=== PATIENT | female | born 1995 | race African-American/Black ===

== ENCOUNTER 2016-10-04 15:03 | Emergency (ER) | payer SELFPAY ==
[~2016-10-04] VITALS: Ht 149.9 cm; Wt 73.9 kg
[~2016-10-04 15:03] MED LIST: CEPH-264 PO; CEPH500C PO; FAMO20TA5 PO; METR500T4 PO
[2016-10-04 15:30] VITALS: BP 127/76
[2016-10-04 15:53] LABS: BILIRUBIN,URINE SMALL (NEG); GLUCOSE,URINE NEGATIVE (NEG); NITRITE,URINE NEGATIVE (NEG); PROTEIN,URINE 30 mg/dL (NEG-TRACE)
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
[2016-10-04] MEDS ORDERED: ACETAMINOPHEN 325 MG TABLET. PO ONE (16:00)
[2016-10-04 16:01] LABS: RBC,URINE OCC /HPF (0-2); WBC,URINE OCC /HPF (0-4)
[2016-10-04 16:02] LABS: BACTERIA,URINE FEW /HPF (0-FEW); SQUAMOUS EPITHELIAL CELL,UR MOD /LPF
[2016-10-04 16:05] LABS: NEG OBC UR NEG; POS OBC UR POS
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
== END 2016-10-04 16:45 | disposition home or self-care (01) ==
LOC: ER 15:03
DX: M25.522 Pain in left elbow (principal); M25.562 Pain in left knee; F12.10 Cannabis abuse, uncomplicated; V43.52XA Car driver injured in collision with other type car in traffic accident, initial encounter; Y92.415 Exit ramp or entrance ramp of street or highway as the place of occurrence of the external cause; Y93.89 Activity, other specified; Y99.8 Other external cause status
CPT/HCPCS: 70486; 73080; 73090; 73564; 81001; 81025; 87086; 99285-25

== ENCOUNTER 2016-12-07 21:24 | Emergency (ER) | payer SELFPAY ==
[~2016-12-07] VITALS: Ht 149.9 cm; Wt 73.5 kg
[2016-12-07 21:39] VITALS: BP 120/74
[2016-12-07 22:06] LABS: BILIRUBIN,URINE NEGATIVE (NEG); GLUCOSE,URINE NEGATIVE (NEG); NITRITE,URINE NEGATIVE (NEG); PROTEIN,URINE NEGATIVE (NEG-TRACE)
[2016-12-07 22:16] LABS: BACTERIA,URINE MODERATE /HPF (0-FEW); RBC,URINE 0 /HPF (0-2); SQUAMOUS EPITHELIAL CELL,UR MANY /LPF
--- NOTE | 2016-12-07 22:24 | PHYS DOC ---
Past Medical History Past Medical History: No Pertinent History Past Surgical History: No Surgical History Alcohol Use: None Drug Use: Marijuana Adult General Chief Complaint Chief Complaint: ABDOMINAL PAIN HPI HPI Patient is a 21 year old female who presents with lower abdominal pain and intermittent nausea with concern of . Symptoms have been intermittent over the past 2 weeks. States she is 2 days late for her menstrual cycle, but she has some vaginal spotting over this time. Only one episode of emesis today, nonbloody nonbilious. She denies fever or chills, diarrhea, dysuria, hematuria , constipation. Review of Systems Review of Systems Constitutional: Denies fever or chills [] Eyes: Denies change in visual acuity, redness, or eye pain [] HENT: Denies nasal congestion or sore throat [] Respiratory: Denies cough or shortness of breath [] Cardiovascular: No additional information not addressed in HPI [] GI: Denies bloody stools or diarrhea [] : Denies dysuria or hematuria [] Musculoskeletal: Denies back pain or joint pain [] Integument: Denies rash or skin lesions [] Neurologic: Denies headache, focal weakness or sensory changes [] Endocrine: Denies polyuria or polydipsia [] Allergies Allergies Allergies Coded Allergies Type Severity Reaction Last Updated Verified No Known Drug Allergies 03/17/16 No Physical Exam Physical Exam Constitutional: Well developed, well nourished, no acute distress, non-toxic appearance. [] HENT: Normocephalic, atraumatic, bilateral external ears normal, oropharynx moist, nose normal. [] Eyes: PERRLA, EOMI. [] Neck: Normal range of motion, supple. [] Cardiovascular:Heart rate regular rhythm [] Lungs & Thorax: Bilateral breath sounds clear to auscultation [] Abdomen: Bowel sounds normal, soft, no tenderness. [] Skin: Warm, dry, no erythema, no rash. [] Back: No tenderness, no CVA tenderness. [] Extremities: No tenderness, ROM intact, no edema. [] Neurologic: Alert and oriented X 3, normal motor function, normal sensory function, no focal deficits noted. [] Psychologic: Affect normal, judgement normal, mood normal. [] Current Patient Data Vital Signs Vital Signs Date Time Temp Pulse Resp B/P Pulse Ox O2 Delivery O2 Flow Rate FiO2 12/07/16 21:39 98.0 57 18 120/74 99 Room Air 98.0 Lab Values Laboratory Tests Test 12/07/16 21:40 Urine Color Yellow Urine Clarity Clear Urine pH 6.0 Urine Specific [place] >=1.030 Urine Protein Negativemg/dL (NEG-TRACE) Urine Glucose (UA) Negativemg/dL (NEG) Urine Ketones (Stick) Negativemg/dL (NEG) Urine Blood Negative (NEG) Urine Nitrite Negative (NEG) Urine Bilirubin Negative (NEG) Urine Urobilinogen Dipstick 1.0mg/dL (0.2 mg/dL) Urine Leukocyte Esterase Trace (NEG) Urine RBC 0/HPF (0-2) Urine WBC 1-4/HPF (0-4) Urine Squamous Epithelial Cells Many/LPF Urine Bacteria Moderate/HPF (0-FEW) Urine Mucus Mod/LPF Course & Med Decision Making Course & Med Decision Making Pertinent Labs and Imaging studies reviewed. (See chart for details) Told test is negative by nursing. UA is otherwise unremarkable. Discussed supportive care for symptoms. Return precautions given. She understands and agrees with plan. Dragon Disclaimer Dragon Disclaimer This electronic medical record was generated, in whole or in part, using a voice recognition dictation system. Departure Departure Impression: Primary Impression: Lower abdominal pain Additional Impression: Nausea and vomiting Disposition: 01 HOME, SELF-CARE Condition: STABLE Referrals: NO PCP (PCP) Patient Instructions: Abdominal Pain, [id number] Additional Instructions: Take Tylenol or ibuprofen as needed for pain. Drink liquids to stay hydrated. Follow-up with your primary care doctor. Return for any concerns. Problem Qualifiers Additional Impression: Nausea and vomiting Vomiting type: unspecified Vomiting Intractability: non-intractable Qualified Code: R11.2 - Nausea with vomiting, unspecified Chuck GRANT MD Dec 07, 2016 22:24
== END 2016-12-07 22:31 | disposition home or self-care (01) ==
LOC: ER 21:24
DX: R10.30 Lower abdominal pain, unspecified (principal); R11.2 Nausea with vomiting, unspecified; F12.10 Cannabis abuse, uncomplicated
CPT/HCPCS: 81001; 81025; 87086; 99284

== ENCOUNTER 2017-03-13 00:13 | Emergency (ER) | payer SELFPAY ==
[~2017-03-13] VITALS: Ht 149.9 cm; Wt 65.8 kg
[~2017-03-13 00:13] MED LIST changes: -METR500T4 PO; +METR500T8 PO
[2017-03-13] MEDS ORDERED: IV NORMAL SALINE 1000ML BAG 1,000 ML IV SCH (02:30)
[2017-03-13] MEDS ORDERED: KETOROLAC 15 MG/ML VIAL. IV ONE (02:45)
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
[2017-03-13 03:30] VITALS: BP 104/59
--- NOTE | 2017-03-13 08:15 | RAD ---
PA AND LATERAL CHEST RADIOGRAPH Clinical Indication: Severe right upper chest pain. Shortness of air today. Comparison: Two-view chest 02/03/2010. Findings: The cardiomediastinal silhouette is normal. Pulmonary vasculature is normal. The lungs are clear. No pleural effusion or pneumothorax is seen. There is no acute bone abnormality. IMPRESSION: No acute cardiopulmonary process.
--- NOTE | 2017-03-13 08:47 | EKG ---
[facility] [address] [place] [id number] Test Date: 2017-03-13 Test Time: 02:10:55 Pat Name: BRIGITTE MURDOCK Department: Room: Gender: F [employer]: : 1995 Requested By: Chuck GRANT Order Number: [id number] Reading MD: Measurements Intervals Cook Rate: 53 P: MN: QRS: 61 QRSD: 90 T: 42 QT: 392 QTc: 370 Interpretive Statements SINUS BRADYCARDIA RI6.01 Unconfirmed report No previous ECG available for comparison
== END 2017-03-13 03:55 | disposition home or self-care (01) ==
LOC: ER 00:13
DX: R07.89 Other chest pain (principal); J02.9 Acute pharyngitis, unspecified; R05 Cough; M25.511 Pain in right shoulder; F12.10 Cannabis abuse, uncomplicated
CPT/HCPCS: 71020; 81025; 93005; 96361; 96374; 99284; J1885; J7030

== ENCOUNTER 2017-07-18 11:40 | Emergency (ER) | payer SELFPAY ==
[~2017-07-18] VITALS: Ht 149.9 cm; Wt 62.1 kg
[2017-07-18 11:50] VITALS: BP 125/73
[2017-07-18] MEDS ORDERED: IV NORMAL SALINE 500ML BAG 500 ML IV ONE (12:30)
[2017-07-18 12:46] LABS: BILIRUBIN,URINE NEGATIVE (NEG); GLUCOSE,URINE NEGATIVE (NEG); NITRITE,URINE NEGATIVE (NEG); PROTEIN,URINE 100 mg/dL (NEG-TRACE); UROBILINOGEN,URINE 0.2 mg/dL (0.2 mg/dL)
[2017-07-18 12:58] LABS: BACTERIA,URINE MODERATE /HPF (0-FEW); RBC,URINE 0 /HPF (0-2); SQUAMOUS EPITHELIAL CELL,UR MANY /LPF; WBC,URINE >40 /HPF (0-4)
[2017-07-18 12:59] LABS: BASO % 1 % (0-3); EOS % 3 % (0-3); HEMATOCRIT 39.1 % (36.0-47.0); HEMOGLOBIN 13.3 g/dL (12.0-15.5); LYMPH # 1.8 x10^3/uL (1.0-4.8); LYMPH % 21 % (24-48); MEAN CORPUSCULAR HEMOGLOBIN 32 pg (25-35); MEAN CORPUSCULAR HGB CONC 34 g/dL (31-37); MEAN CORPUSCULAR VOLUME 93 fL (79-100); MONO % 5 % (0-9); NEUT % 71 % (31-73); PLATELET COUNT 238 x10^3/uL (140-400); RED BLOOD COUNT 4.19 x10^6/uL (3.50-5.40); RED CELL DISTRIBUTION WIDTH 13.7 % (11.5-14.5); WHITE BLOOD COUNT 8.4 x10^3/uL (4.0-11.0)
[2017-07-18 13:15] LABS: ALBUMIN 4.2 g/dL (3.4-5.0); DIRECT BILIRUBIN 0.1 mg/dL (0.0-0.2); TOTAL BILIRUBIN 0.4 mg/dL (0.2-1.0)
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
[2017-07-18 13:39] LABS: CALCIUM 9.6 mg/dL (8.5-10.1); CREATININE 0.9 mg/dL (0.6-1.0); GFR 93.9; POTASSIUM 3.7 mmol/L (3.5-5.1)
[2017-07-18] MEDS ORDERED: CONTRAST GIVEN MC PRN (15:00)
[2017-07-18] MEDS ORDERED: IOHEXOL 300 MG/ML 75 ML VIAL IV ONE (15:00)
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
--- NOTE | 2017-07-22 15:59 | VNOTE ---
CALL BACK NOTE CALL BACK Microbiology 07/18/17 Urine Culture - Final, Complete 07/18/17 Urine Culture Result 1 (BLADIMIR) - Final, Complete 07/18/17 Urine Culture Result 2 (BLADIMIR) - Final, Complete 07/18/17 Antimicrobic Susceptibility - Final, Complete Patients urine positive for E. coli and hemolytic strep B. Patient will need to be treated with augmentin. Called patient with message left. PARRISH ANDERSON [employer] Jul 22, 2017 15:59
== END 2017-07-18 16:07 | disposition home or self-care (01) ==
LOC: ER 11:40
DX: R10.13 Epigastric pain (principal); N93.9 Abnormal uterine and vaginal bleeding, unspecified; R04.2 Hemoptysis; R00.0 Tachycardia, unspecified; Y04.0XXA Assault by unarmed brawl or fight, initial encounter; Y93.89 Activity, other specified; Y92.89 Other specified places as the place of occurrence of the external cause; Y99.8 Other external cause status
CPT/HCPCS: 36415; 74177; 80048; 80076; 81001; 81025; 83690; 84702; 85025; 87086; 87186; 96360; 99285; J7040; Q9967

== ENCOUNTER 2017-08-04 10:08 | Emergency (ER) | payer SELFPAY ==
[~2017-08-04] VITALS: Ht 149.9 cm; Wt 63.5 kg
[2017-08-04 10:39] LABS: BILIRUBIN,URINE NEGATIVE (NEG); GLUCOSE,URINE NEGATIVE (NEG); NITRITE,URINE POSITIVE (NEG); PROTEIN,URINE >=300 mg/dL (NEG-TRACE)
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
[2017-08-04 10:51] LABS: BACTERIA,URINE MODERATE /HPF (0-FEW); RBC,URINE OCC /HPF (0-2); SQUAMOUS EPITHELIAL CELL,UR MOD /LPF
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
[2017-08-04] MEDS ORDERED: IBUPROFEN 800 MG TABLET. PO ONE (12:00)
[2017-08-04] MEDS ORDERED: CYCLOBENZAPRINE 10 MG TABLET. PO ONE (12:00)
[2017-08-04] MEDS ORDERED: CYCL10TA2 PO (12:16)
[2017-08-04] MEDS ORDERED: CIPR500T94 PO (12:16)
[2017-08-04] MEDS ORDERED: IBUP-1060 PO (12:16)
[2017-08-04 12:30] VITALS: BP 123/60
== END 2017-08-04 12:28 | disposition home or self-care (01) ==
LOC: ER 10:08
DX: M54.2 Cervicalgia (principal); M25.561 Pain in right knee; M54.89 Other dorsalgia; M25.511 Pain in right shoulder; N39.0 Urinary tract infection, site not specified; F12.10 Cannabis abuse, uncomplicated; Y08.89XA Assault by other specified means, initial encounter; Y93.89 Activity, other specified; Y99.8 Other external cause status; Y92.89 Other specified places as the place of occurrence of the external cause
CPT/HCPCS: 70360; 70450; 72072; 72100; 72125; 73564; 81001; 81025; 87086; 87186; 99285-25

== ENCOUNTER 2018-05-05 09:51 | Emergency (ER) | payer SELFPAY ==
[~2018-05-05] VITALS: Ht 149.9 cm; Wt 68.0 kg
[~2018-05-05 09:51] MED LIST changes: +CIPR500T94 PO; +CYCL10TA2 PO; +IBUP-1060 PO
--- NOTE | 2018-05-05 10:11 | PHYS DOC ---
Past Medical History Past Medical History: No Pertinent History Past Surgical History: No Surgical History Additional Past Surgical Histo: I&D ABSCESS Alcohol Use: Occasionally Drug Use: Marijuana Adult General Chief Complaint Chief Complaint: SEXUALLY TRANSMITTED DISEASE HPI HPI Patient is a 23 year old female with no significant medical history presents today concerned for STDs. Patient states the partner notified her he was treated for STDs, patient has no symptoms. Review of Systems Review of Systems Constitutional: Denies fever or chills [] Eyes: Denies change in visual acuity, redness, or eye pain [] HENT: Denies nasal congestion or sore throat [] Respiratory: Denies cough or shortness of breath [] Cardiovascular: No additional information not addressed in HPI [] GI: Denies abdominal pain, nausea, vomiting, bloody stools or diarrhea [] : Reports STD concern. Denies dysuria or hematuria [] Musculoskeletal: Denies back pain or joint pain [] Integument: Denies rash or skin lesions [] Neurologic: Denies headache, focal weakness or sensory changes [] Endocrine: Denies polyuria or polydipsia [] All other systems were reviewed and found to be within normal limits, except as documented in this note. Allergies Allergies Allergies Coded Allergies Type Severity Reaction Last Updated Verified No Known Drug Allergies 03/17/16 No Physical Exam Physical Exam Constitutional: Well developed, well nourished, no acute distress, non-toxic appearance. [] HENT: Normocephalic, atraumatic, bilateral external ears normal, oropharynx moist, no oral exudates, nose normal. [] Eyes: PERRLA, EOMI, conjunctiva normal, no discharge. [] Neck: Normal range of motion, no tenderness, supple, no stridor. [] Cardiovascular:Heart rate regular rhythm, no murmur [] Lungs & Thorax: Bilateral breath sounds clear to auscultation [] Abdomen: Bowel sounds normal, soft, no tenderness, no masses, no pulsatile masses. [] Pelvic exam External pelvic appears normal, cervix is closed, no CMT, no adnexal tenderness , trace white discharge in the vaginal vault. Skin: Warm, dry, no erythema, no rash. [] Back: No tenderness, no CVA tenderness. [] Extremities: No tenderness, no cyanosis, no clubbing, ROM intact, no edema. [] Neurologic: Alert and oriented X 3, normal motor function, normal sensory function, no focal deficits noted. [] Psychologic: Affect normal, judgement normal, mood normal. [] EKG EKG [] Radiology/Procedures Radiology/Procedures [] Course & Med Decision Making Course & Med Decision Making Pertinent Labs and Imaging studies reviewed. (See chart for details) This is a 23-year-old female patient presenting to the ED today to be treated for STDs. Patient was offered prophylaxis treatment. STD education provided. Follow-up with the health department or PCP as needed. Dragon Disclaimer Dragon Disclaimer This electronic medical record was generated, in whole or in part, using a voice recognition dictation system. Departure Departure Impression: Primary Impression: Concern about STD in female without diagnosis Disposition: 01 HOME, SELF-CARE Condition: STABLE Referrals: JCARLOS NICOLE MD (PCP) Follow-up with your doctor as needed Patient Instructions: Sexually Transmitted Disease, [id number] Additional Instructions: You were treated for sexually transmitted diseases in the emergency room. Use protection at all times. Do not have sex for 7 days. Contact all your sex partners, let them know you were treated for STDs and ask them to seek treatment too. [employer] P[employer] May 05, 2018 10:11
[2018-05-05] MEDS ORDERED: AZITHROMYCIN 250 MG TABLET. PO ONE (10:15)
[2018-05-05] MEDS ORDERED: cefTRIAXone IM 250 MG VIAL IM ONE (10:15)
[2018-05-05] MEDS ORDERED: metroNIDAZOLE 500 MG TABLET PO ONE (10:15)
[2018-05-06 14:31] LABS: GC PROBE Positive (Negative)
== END 2018-05-05 10:52 | disposition home or self-care (01) ==
LOC: ER 09:51
DX: Z20.2 Contact with and (suspected) exposure to infections with a predominantly sexual mode of transmission (principal)
CPT/HCPCS: 87491; 87591; 96372; 99284; J0696; Q0111; Q0144; 99283

== ENCOUNTER 2018-12-01 11:05 | Emergency (ER) | payer SELFPAY ==
[~2018-12-01] VITALS: Ht 149.9 cm; Wt 61.2 kg
[~2018-12-01 11:05] MED LIST changes: +METR-34 PO; -METR500T8 PO
--- NOTE | 2018-12-01 15:14 | RAD ---
THORACIC SPINE 3V History: UPPER BACK PAIN, NO INJURY, "FEELS LIKE IT IS OUT OF PLACE". Comparison with August 04, 2017 images although that report is not available Vertebral body height and alignment appear intact. The uppermost thoracic spine is poorly seen on the lateral view and swimmer's view. No evidence of paraspinal soft tissue swelling. Disc spaces appear maintained. IMPRESSION: No evidence of acute fracture or subluxation. MR of the thoracic spine could provide further evaluation, as indicated. Electronically signed by: Devan Toledo MD (12/01/2018 3:11 PM) [id number]
--- NOTE | 2018-12-01 15:21 | PHYS DOC ---
Past Medical History Past Medical History: No Pertinent History Past Surgical History: Other Additional Past Surgical Histo: I&D ABSCESS Additional Information: 0.5 PPD Alcohol Use: Occasionally Drug Use: Marijuana Adult General Chief Complaint Chief Complaint: BACK PAIN OR INJURY [facility] HPI Patient is a 23 year old female who presents to the emergency room with complaints of mid back pain for the last six months. she states that the pain increased today.She denies any injury. Patient denies any cough, shortness of breath, wheezing, or chest pain. She states it feels like her back is out of place. Currently she rates the pain a 10 out of 10 on the pain scale she denies any alleviating or exacerbating factors. Review of Systems Review of Systems Constitutional: Denies fever or chills [] Eyes: Denies change in visual acuity, redness, or eye pain [] HENT: Denies nasal congestion or sore throat [] Respiratory: Denies cough or shortness of breath [] Cardiovascular: No additional information not addressed in HPI [] GI: Denies abdominal pain, nausea, vomiting, or diarrhea [] : Denies dysuria or hematuria [] Musculoskeletal: See HPI Integument: Denies rash or skin lesions [] Neurologic: Denies headache, focal weakness or sensory changes [] Complete systems were reviewed and found to be within normal limits, except as documented in this note. Allergies Allergies Allergies Coded Allergies Type Severity Reaction Last Updated Verified No Known Drug Allergies 03/17/16 No Physical Exam Physical Exam Constitutional: Well developed, well nourished, no acute distress, non-toxic appearance. [] HENT: Normocephalic, atraumatic, bilateral external ears normal, oropharynx moist, no oral exudates, nose normal. [] Eyes: PERRLA, conjunctiva normal, no discharge. [] Neck: Normal range of motion, no tenderness, supple, no stridor. [] Lungs & Thorax: Bilateral breath sounds clear to auscultation [] Skin: Warm, dry, no erythema, no rash. [] Back: No CVA tenderness; thoracic bony TTP, no step off, no crepitus, no bruising Extremities: No cyanosis, ROM intact, no edema. [] Neurologic: Alert and oriented X 3, normal motor function, normal sensory function, no focal deficits noted. [] Psychologic: Affect normal, judgement normal, mood normal. [] Current Patient Data Vital Signs Lab Values Laboratory Tests Test 12/01/18 14:32 POC Urine HCG, Qualitative Hcg negative (Negative) EKG EKG [] Radiology/Procedures Radiology/Procedures PROCEDURE: THORACIC SPINE 3V THORACIC SPINE 3V History: UPPER BACK PAIN, NO INJURY, "FEELS LIKE IT IS OUT OF PLACE". Comparison with August 04, 2017 images although that report is not available Vertebral body height and alignment appear intact. The uppermost thoracic spine is poorly seen on the lateral view and swimmer's view. No evidence of paraspinal soft tissue swelling. Disc spaces appear maintained. IMPRESSION: No evidence of acute fracture or subluxation. MR of the thoracic spine could provide further evaluation, as indicated.[] Course & Med Decision Making Course & Med Decision Making Pertinent Labs and Imaging studies reviewed. (See chart for details) [] Dragon Disclaimer Dragon Disclaimer This electronic medical record was generated, in whole or in part, using a voice recognition dictation system. Departure Departure Impression: Primary Impression: Acute thoracic back pain Disposition: HOME, SELF-CARE Condition: STABLE Referrals: NO PCP (PCP) Patient Instructions: Thoracic Strain, [id number] Additional Instructions: Fill the prescriptions and use as directed. Activity as tolerated. Follow up with primary care doctor if symptoms persist, return to the ER if symptoms worsen. Scripts Cyclobenzaprine Hcl (CYCLOBENZAPRINE HCL) 10 Mg Tablet 1 TAB PO TID PRN for PAIN for 10 Days, #30 TAB 0 Refills Prov: JOHN DAY [employer] 12/01/18 Naproxen (NAPROXEN) 500 Mg Tablet 1 TAB PO BID PRN for PAIN for 10 Days, #20 TAB 0 Refills Prov: JOHN DAY [employer] 12/01/18 Problem Qualifiers Primary Impression: Acute thoracic back pain Back pain laterality: midline Qualified Codes: M54.6 - Pain in thoracic spine JOHN DAY DIRECTOR [employer] Dec 01, 2018 15:21
[2018-12-01 15:30] VITALS: BP 118/78
[2018-12-01] MEDS ORDERED: CYCL10TA2 PO (16:01)
[2018-12-01] MEDS ORDERED: NAPR-514 PO (16:01)
== END 2018-12-01 16:06 | disposition home or self-care (01) ==
LOC: ER 11:05
DX: M54.6 Pain in thoracic spine (principal); F17.200 Nicotine dependence, unspecified, uncomplicated
CPT/HCPCS: 72072; 81025; 99283

== ENCOUNTER 2018-12-09 13:06 | Emergency (ER) | payer SELFPAY ==
[~2018-12-09] VITALS: Ht 149.9 cm; Wt 59.0 kg
[~2018-12-09 13:06] MED LIST changes: +NAPR-514 PO
[2018-12-09 13:10] VITALS: BP 126/73
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
[2018-12-09] MEDS ORDERED: AZITHROMYCIN 250 MG TABLET. PO ONE (14:30)
[2018-12-09] MEDS ORDERED: cefTRIAXone IM 250 MG VIAL IM ONE (14:30)
== END 2018-12-09 15:00 | disposition home or self-care (01) ==
LOC: ER 13:06
DX: Z20.2 Contact with and (suspected) exposure to infections with a predominantly sexual mode of transmission (principal)
CPT/HCPCS: 81025; 96372; 99283; J0696; Q0144